=== PATIENT | male | born 1995 | race Hispanic/Latino ===

== ENCOUNTER 2019-12-23 19:45 | Emergency (ER) | payer SELFPAY ==
[2019-12-23] MEDS ORDERED: Fluorescein Opthalmic Strip ONE (20:03)
[2019-12-23] MEDS ORDERED: Proparacaine 0.5% Opth 15 ML BOT ONE (20:03)
== END 2019-12-23 20:29 | disposition home or self-care (01) ==
LOC: ERS 19:45
DX: S05.01XA Injury of conjunctiva and corneal abrasion without foreign body, right eye, initial encounter (principal); W22.8XXA Striking against or struck by other objects, initial encounter; Y99.0 Civilian activity done for income or pay
CPT/HCPCS: 99283